=== PATIENT | female | born 1980 | race Caucasian/White ===

== ENCOUNTER 2023-02-11 17:37 | Emergency (ER) | payer OTHER ==
[~2023-02-11] VITALS: Ht 157.5 cm; Wt 82.0 kg
[~2023-02-11 17:37] MED LIST: BOOSTRIX IM; FLEXERIL PO; NO MEDS
[2023-02-11 17:54] VITALS: BP 131/80
[2023-02-11 18:01] VITALS: BP 112/61
[2023-02-11 18:05] VITALS: BP 112/61
[2023-02-11] MEDS ORDERED: BACTRIM DS1 TAB PO (23:31)
[2023-02-11] MEDS ORDERED: VISTARIL25 MG PO (23:31)
== END 2023-02-11 18:20 | disposition left against medical advice (07) | DRG 951 ==
LOC: ED 17:37 → LWOBS 18:11
DX: Z53.21 Procedure and treatment not carried out due to patient leaving prior to being seen by health care provider (principal)

== ENCOUNTER 2023-02-11 18:47 | Emergency (ER) | payer OTHER ==
[2023-02-11] VITALS (12 sets, daily range): BP systolic 68–125; BP diastolic 44–81
[~2023-02-11] VITALS: Ht 157.5 cm; Wt 90.0 kg
[2023-02-11 20:06] LABS: BASO% 0.4 % (0-3); EOS% 0.3 % (0-8); HEMATOCRIT 34.9 % (37.0-47.0); HEMOGLOBIN 11.4 g/dl (12.0-16.0); IMMATURE GRANULOCYTES 0.1 % (0.0-5.0); LYMPH% 21.6 % (15-41); MEAN CORPUSCULAR HGB 30.2 pG CALC (26.0-32.0); MEAN CORPUSCULAR HGB CONC 32.7 g/dL CAL (32.0-36.0); MONO% 6.4 % (2-13); NEUT# 5.24 thou/uL (2.00-7.15); NEUT% 71.2 % (42-76); RED BLOOD COUNT 3.77 mill/uL (4.20-5.60); RED CELL DISTRI WIDTH 12.3 % (11.5-15.5)
[2023-02-11 20:10] LABS: MEAN CELL VOLUME 92.6 fL CALC (80.0-100.0)
[2023-02-11 20:17] LABS: ALBUMIN 3.9 g/dL (3.2-5.0); ALKALINE PHOSPHATASE 46 u/l (38-126); ANION GAP 11 (6-22 (CALC)); BUN 10 mg/dL (7-17); BUN/CREATININE RATIO 18 (12-20 (CALC)); CARBON DIOXIDE 27 mmol/l (22-30); CHLORIDE 104 mmol/l (95-108); CREATININE 0.6 mg/dL (0.5-1.0); ETHYL ALCOHOL 0 mg/dl (0-30); GFR FOR AFR.AMER. > 60 ML/MIN (>=60 (CALC)); GFR OTHER RACES > 60 ML/MIN (>=60 (CALC)); MAGNESIUM 1.9 mg/dL (1.6-2.3); POTASSIUM 4.2 mmol/l (3.5-5.1); SGOT/AST 17 u/l (14-36); SODIUM 138 mmol/l (137-146); TOTAL PROTEIN 6.8 g/dL (6.3-8.2)
[2023-02-11 20:19] LABS: BILIRUBIN, TOTAL 0.5 mg/dL (0.02-1.3)
[2023-02-11 22:37] LABS: URINE BILIRUBIN - DIPSTICK Negative (NEGATIVE); URINE BLOOD DIPSTICK Small (NEGATIVE); URINE COLOR Yellow; URINE GLUCOSE - DIPSTICK Negative (NEGATIVE); URINE KETONE 15 mg/dL (NEGATIVE); URINE NITRITE - DIPSTICK Positive (Negative); URINE PH 6.5 (4.5-8.0); URINE PROTEIN - DIPSTICK Trace mg/dL (NEG-TRACE); URINE UROBILINOGEN - DIPSTICK 0.2 E.U./dL (0.2)
[2023-02-11 22:38] LABS: URINE LEUK ESTERASE Large (NEGATIVE)
[2023-02-11 22:52] LABS: URINE BACTERIA MANY hpf; URINE SQUAMOUS EPITHELIAL CELL FEW EPI/hpf (0-FEW); URINE WBC >100 WBC/hpf (0-5)
[2023-02-11 23:26] LABS: TSH, 3RD GENERATION 1.03 uIU/mL (0.47 - 4.68)
[2023-02-11] MEDS ORDERED: BACTRIM DS1 TAB PO (23:31)
[2023-02-11] MEDS ORDERED: VISTARIL25 MG PO (23:31)
== END 2023-02-11 23:45 | disposition home or self-care (01) | DRG 880 ==
LOC: ED 18:47
PROVIDERS: Family Medicine
DX: F41.9 Anxiety disorder, unspecified (principal); N39.0 Urinary tract infection, site not specified; B95.1 Streptococcus, group B, as the cause of diseases classified elsewhere